=== PATIENT | female | born 1980 | race Two or more races ===

== ENCOUNTER → 2019-09-23 | Outpatient (CLI) | payer OTHER | END | disposition home or self-care (01) | LOC: PRENATAL 09-18 10:00 | DX: O28.1 Abnormal biochemical finding on antenatal screening of mother (principal); O34.211 Maternal care for low transverse scar from previous cesarean delivery; O09.522 Supervision of elderly multigravida, second trimester; O35.3XX1 Maternal care for (suspected) damage to fetus from viral disease in mother, fetus 1 ==

== ENCOUNTER 2020-01-23 05:20 | Inpatient (IN) | payer OTHER ==
[~2020-01-23] VITALS: Ht 160 cm; Wt 3.2 kg
== END 2020-01-26 14:12 | disposition home or self-care (01) | DRG 785 ==
LOC: LDR 05:20 → OB/GYN 05:20
PROVIDERS: ADMIT Obstetrics & Gynecology; ATTEND Obstetrics & Gynecology
PROC: 0UL70ZZ Occlusion of Bilateral Fallopian Tubes, Open Approach (ICD-10-PCS; 2020-01-23)
PROC: 4A1HXCZ Monitoring of Products of Conception, Cardiac Rate, External Approach (ICD-10-PCS; 2020-01-23)
PROC: 10D00Z1 Extraction of Products of Conception, Low, Open Approach (ICD-10-PCS; principal; 2020-01-23 07:00)
DX: O82 Encounter for cesarean delivery without indication (principal); Z3A.38 38 weeks gestation of pregnancy; Z37.0 Single live birth; Z30.2 Encounter for sterilization

== ENCOUNTER 2021-09-28 11:09 | Outpatient (CLI) | payer OTHER | END 2021-09-28 11:21 | disposition home or self-care (01) | LOC: RAD 11:09 | DX: N60.19 Diffuse cystic mastopathy of unspecified breast (principal); M25.512 Pain in left shoulder ==